=== PATIENT | female | born 1975 | race Hispanic/Latino ===

== ENCOUNTER 2018-08-10 18:55 | Emergency (ER) | payer BC ==
[~2018-08-10] VITALS: Ht 271.8 cm; Wt 60.8 kg
[~2018-08-10 18:55] MED LIST: AMARYL2 MG PO; Aspirin PO; LEVEMIR100 UNIT/1 SQ; LIPITOR20 MG PO; METFORMIN HCL500 MG PO; MULTI-VITAMIN1 EACH PO; PRINIVIL20 MG PO; TOPROL XL50 MG PO
[2018-08-10 21:46] LABS: CLARITY,URINE HAZY (CLEAR); COLOR,URINE YELLOW (YELLOW)
[2018-08-10 21:47] LABS: BILIRUBIN,URINE NEGATIVE (NEGATIVE); KETONES,URINE 1+ (NEGATIVE); LEUKOCYTE ESTERASE ,URINE NEGATIVE (NEGATIVE); NITRITE,URINE POSITIVE (NEGATIVE); PROTEIN,URINE DIPSTICK TRACE (NEGATIVE); URINE UROBILINOGEN 0.2 mg/dL (0.2 - 1)
[2018-08-10 21:50] LABS: BACTERIA,URINE MANY /HPF; EPITHELIAL CELLS,URINE MODERATE /LPF; RBC,URINE 0-5 /HPF (0-5); YEAST,URINE MANY
[2018-08-10 21:51] LABS: PREGNANCY TEST, URINE NEGATIVE (NEGATIVE)
[2018-08-10 23:22] VITALS: BP 196/93
== END 2018-08-10 23:35 | disposition home or self-care (01) ==
LOC: ER 18:55
DX: R10.2 Pelvic and perineal pain (principal); R30.0 Dysuria; N30.90 Cystitis, unspecified without hematuria; I10 Essential (primary) hypertension; E11.9 Type 2 diabetes mellitus without complications
CPT/HCPCS: 81001; 81025; 99283

== ENCOUNTER 2018-12-07 14:09 | Observation (INO) | payer BC ==
[~2018-12-07] VITALS: Ht 271.8 cm; Wt 60.8 kg
--- NOTE | 2018-12-07 15:06 | Diagnostic Imaging Report ---
EXAM: CHEST 2 VIEWS DATE: 12/07/2018 2:14 PM INDICATION:Dizziness, chest pain COMPARISON: Chest x-ray, 04/26/2015 (report only, images unavailable on PACS) FINDINGS: Lines and tubes: None Heart size normal. No focal pulmonary opacity, pleural effusion or pneumothorax. Upper abdomen unremarkable with cholecystectomy clips noted. No acute bony abnormality. IMPRESSION: No evidence for acute disease. Normal appearance of the chest. Signed by: Dr. Rahul Daugherty M.D. on 12/07/2018 3:02 PM
[2018-12-07 15:11] LABS: BASOPHILS # (AUTO) 0.1 (0.0-0.1); BASOPHILS % 0.6 % (0.0-1.0); EOSINOPHILS # (AUTO) 0.3 (0.0-0.4); EOSINOPHILS % 2.2 % (0.0-6.0); HEMATOCRIT 36.8 % (34.2-44.1); HEMOGLOBIN 11.2 g/dL (12.0-16.0); LYMPHOCYTES % 16.1 % (18.0-39.1); MEAN CORPUSCULAR HEMOGLOBIN 20.3 pg (28-32); MEAN CORPUSCULAR HGB CONC 30.4 g/dL (31-35); MEAN CORPUSCULAR VOLUME 66.7 fL (81-99); MONOCYTES # (AUTO) 0.9 (0.2-0.8); MONOCYTES % 7.5 % (4.4-11.3); NEUTROPHILS % 73.1 % (38.7-80.0); PLATELET COUNT 401 x10e3/uL (140-360); RED BLOOD COUNT 5.52 x10e6/uL (3.6-5.1); RED CELL DISTRIBUTION WIDTH 19.9 % (11.7-14.4)
[2018-12-07 15:17] LABS: BILIRUBIN,URINE NEGATIVE (NEGATIVE); CLARITY,URINE SL CLOUDY (CLEAR); COLOR,URINE STRAW (YELLOW); KETONES,URINE NEGATIVE (NEGATIVE); LEUKOCYTE ESTERASE ,URINE NEGATIVE (NEGATIVE); NITRITE,URINE NEGATIVE (NEGATIVE); PROTEIN,URINE DIPSTICK 2+ (NEGATIVE); URINE UROBILINOGEN 0.2 mg/dL (0.2 - 1)
[2018-12-07 15:24] LABS: INR 0.86; PROTHROMBIN TIME 12.2 seconds (11.9-14.5)
[2018-12-07 15:25] LABS: PARTIAL THROMBOPLASTIN TIME 27.9 seconds (23.8-35.5)
[2018-12-07 15:27] LABS: AMPHETAMINES SCREEN,URINE NEGATIVE (NEGATIVE); BACTERIA,URINE MANY /HPF; BENZODIAZEPINES SCREEN,URINE NEGATIVE (NEGATIVE); EPITHELIAL CELLS,URINE FEW /LPF; PHENCYCLIDINE SCREEN,URINE NEGATIVE (NEGATIVE); RBC,URINE 0-5 /HPF (0-5); TRANSITIONAL EPI CELLS,URINE MODERATE
[2018-12-07 15:34] LABS: ALANINE AMINOTRANSFERASE 19 IU/L (0-55); ALBUMIN 3.7 g/dL (3.5-5.0); ALBUMIN/GLOBULIN RATIO 0.9 (0.8-2.0); ALKALINE PHOSPHATASE 79 IU/L (40-150); BLOOD UREA NITROGEN 13 mg/dL (7-26); BUN/CREATININE RATIO 15 (6-25); CALCIUM 9.7 mg/dL (8.4-10.2); CARBON DIOXIDE 23 mmol/L (22-29); CHLORIDE 101 mmol/L (98-107); CREATINE KINASE 47 IU/L (29-168); CREATININE, SERUM 0.88 mg/dL (0.57-1.11); EST GLOMERULAR FILTRATION RATE > 60 ML/MIN (60-); GLUCOSE 341 mg/dL (74-118); SODIUM 133 mmol/L (136-145)
[2018-12-07] MEDS ORDERED: SODIUM CHLORIDE 0.9% 1000ML 1,000 ML IV STA (16:34)
--- NOTE | 2018-12-07 16:41 | Diagnostic Imaging Report ---
EXAMINATION: Head CT HISTORY: Dizziness, hypertension, COMPARISON: None. TECHNIQUE: Multidetector axial images were obtained with, without contrast from the foramen magnum to the vertex . The images were reconstructed using brain and bone algorithms. Thin section brain images were reformatted into coronal and sagittal planes. Image quality: Motion/streaking artifact limits the evaluation of the skull base and posterior cranial fossa. Dose modulation, iterative reconstruction, and/or weight based adjustment of the mA/kV was utilized to reduce the radiation dose to as low as reasonably achievable. FINDINGS: Parenchyma: 1. No abnormal densities. 2. No mass or hemorrhage. No CT evidence of acute territorial vascular insult. Extra-axial spaces:No abnormal density. No extra-axial fluid collections Brain volume: Normal for age. Ventricles: No hydrocephalus or displacement. Arteries: No density suggestive of thrombus. Dural sinuses: No abnormal density. Extra-axial spaces: No abnormal density. Foramen magnum: No mass, Chiari malformation, or basilar invagination. Sella: No obvious mass. Paranasal/mastoid sinuses: Imaged portions unremarkable. Skull/Scalp: No lytic or blastic lesions. No fractures. IMPRESSION: No intracranial abnormalities, particularly no hemorrhage. Signed by: Dr. Eboni Rudolph M.D. on 12/07/2018 4:38 PM
[2018-12-07] MEDS ORDERED: INSULIN LISPRO 100 UNIT/1 ML 3ML VIAL SQ ONE (16:45)
[2018-12-07] MEDS ORDERED: ONDANSETRON HCL INJ 2MG/ML 2ML 2 MG/ML VIAL IV PRN (17:15)
[2018-12-07] MEDS ORDERED: DEXTROSE 50% SYRINGE 50 ML IV PRN (17:15)
[2018-12-07] MEDS ORDERED: MORPHINE SULFATE 2 MG/ML SYR 1ML IV PRN (17:15)
--- NOTE | 2018-12-07 17:16 | NUR ---
REPORT TO DESIREE AND VERIFIED INSULIN WITH RACHEL MCDUFFIE
[2018-12-07] MEDS: METOPROLOL TARTRATE 25 MG TAB PO SCH (17:28)
[2018-12-07] MEDS: FAMOTIDINE 20 MG/2 ML VIAL IV SCH (17:28)
[2018-12-07] MEDS ORDERED: MORPHINE SULFATE INJ 4 MG/ML INJ 1ML IV PRN (17:30)
--- OUTSIDE RECORDS SUMMARY | 2018-12-07 17:48 | XMS REPORT ---
Author Author [facility] Address Unknown Phone Unavailable Care Team Providers Care [facility] Name Role Phone Sachin HAMPTON Unavailable Unavailable Problems This patient has no known problems. Allergies, Adverse Reactions, Alerts This patient has no known allergies or adverse reactions. Medications This patient has no known medications. Results Test Description Test Time Test Comments Text Results Atomic Results Result Comments CT BRAIN WO 2018-12-07 16:36:00 [place] [id number] Patient Name: JERO MCCARTHY MR #: [id number] : 1975 Age/Sex: 43/F Req #: [id number] Adm Physician: Ordered by: JOY HAMPTON MD Report #: [id number] Location: ER Room/Bed: Procedure: [id number] CT/CT BRAIN WO Exam Date: 12/07/18 Exam Time: 1440 REPORT STATUS: Signed EXAMINATION: Head CT HISTORY: Dizziness, hypertension, COMPARISON: None. TECHNIQUE: Multidetector axial images were obtained with, without contrast from the foramen magnum to the vertex . The images were reconstructed using brain and bone algorithms. Thin section brain images were reformatted into coronal and sagittal planes. Image quality: Motion/streaking artifact limits the evaluation of the skull base and posterior cranial fossa. Dose modulation, iterative reconstruction, and/or weight based adjustment of the mA/kV was utilized to reduce the radiation dose to as low as reasonably achievable. FINDINGS: Parenchyma: 1. No abnormal densities. 2. No mass or hemorrhage. No CT evidence of acute territorial vascular insult. Extra-axial spaces:No abnormal density. No extra-axial fluid collections Brain volume: Normal for age. Ventricles: No hydrocephalus or displacement. Arteries: No density suggestive of thrombus. Dural sinuses: No abnormal density. Extra-axial spaces: No abnormal density. Foramen magnum: No mass, Chiari malformation, or basilar invagination. Sella: No obvious mass. Paranasal/mastoid sinuses: Imaged portions unremarkable. Skull/Scalp: No lytic or blastic lesions. No fractures. IMPRESSION: No intracranial abnormalities, particularly no hemorrhage. Signed by: Dr. Amadeo Rudolph M.D. on 12/07/2018 4:38 PM Dictated By: AMADEO RUDOLPH MD 37 Transcribed By: HUSSAIN on 12/07/181637 COPY TO: JOY HAMPTON MD CHEST 2 VIEWS 2018-12-07 15:00:00 [place] [id number] Patient Name: JERO MCCARTHY MR #: [id number] : 1975 Age/Sex: 43/F Req #: [id number] Adm Physician: Ordered by: JOY HAMPTON MD Report #: [id number] Location: ER Room/Bed: Procedure: [id number] DX/CHEST 2 VIEWS Exam Date: 12/07/18 Exam Time: 1431 REPORT STATUS: Signed EXAM: CHEST 2 VIEWS DATE: 12/07/2018 2:14 PM INDICATION:Dizziness, chest pain COMPARISON: Chest x-ray, 04/26/2015 (report only, images unavailable on PACS) FINDINGS: Lines and tubes: None Heart size normal. No focal pulmonary opacity, pleural effusion or pneumothorax. Upper abdomen unremarkable with cholecystectomy clips noted. No acute bony abnormality. IMPRESSION: No evidence for acute disease. Normal appearance of the chest. Signed by: Dr. Sonia Gibson M.D. on 12/07/2018 3:02 PM Dictated By: SONIA GIBSON MD 1502 Transcribed By: HUSSAIN on 12/07/18 1502 COPY TO: JOY HAMPTON MD
--- NOTE | 2018-12-07 18:19 | NUR ---
RECVD PATIENT FROM ER, AAOx3, RESP EVEN AND UNLABORED, NOT IN ANY ACUTE DISTRESS, DENIES ANY PAIN, CALL LIGHT IN REACH
[2018-12-07 18:28] VITALS: BP 189/88
--- NOTE | 2018-12-07 18:29 | NUR ---
RECHECKED BP MANUALLY 155/85. PATIENT AMBULATING IN WELLER WAY, NOT IN ANY DISTRESS
--- NOTE | 2018-12-07 19:30 | NUR ---
Rounding done, received patient resting in bed. A&Ox4, respirations even & unlabored, no distress noted. Patient denies any issues at this time. Call light within reach, siderailsx2 raised and bed set to lowest position.
[2018-12-07 21:15] VITALS: BP 169/77
[2018-12-07] MEDS: INSULIN LISPRO 100 UNIT/1 ML 3ML VIAL SQ SCH (21:32)
[2018-12-08] VITALS (10 sets, daily range): BP systolic 123–169; BP diastolic 70–77
[2018-12-08 02:03] LABS: CREATINE KINASE 36 IU/L (29-168)
[2018-12-08] MEDS: FAMOTIDINE 20 MG/2 ML VIAL IV SCH (05:35)
[2018-12-08] MEDS: METOPROLOL TARTRATE 25 MG TAB PO SCH ×2 (05:35→17:15)
[2018-12-08 06:20] LABS: BASOPHILS # (AUTO) 0.1 (0.0-0.1); BASOPHILS % 0.6 % (0.0-1.0); EOSINOPHILS # (AUTO) 0.6 (0.0-0.4); EOSINOPHILS % 5.2 % (0.0-6.0); HEMATOCRIT 34.2 % (34.2-44.1); HEMOGLOBIN 10.2 g/dL (12.0-16.0); LYMPHOCYTES # (AUTO) 2.3 (1.0-3.2); LYMPHOCYTES % 21.5 % (18.0-39.1); MEAN CORPUSCULAR HGB CONC 29.8 g/dL (31-35); MEAN CORPUSCULAR VOLUME 67.1 fL (81-99); MONOCYTES # (AUTO) 0.7 (0.2-0.8); MONOCYTES % 6.9 % (4.4-11.3); NEUTROPHILS % 65.2 % (38.7-80.0); PLATELET COUNT 364 x10e3/uL (140-360); RED CELL DISTRIBUTION WIDTH 19.9 % (11.7-14.4)
[2018-12-08 06:40] LABS: ALANINE AMINOTRANSFERASE 17 IU/L (0-55); ALBUMIN 2.9 g/dL (3.5-5.0); ALBUMIN/GLOBULIN RATIO 0.8 (0.8-2.0); ALKALINE PHOSPHATASE 62 IU/L (40-150); BLOOD UREA NITROGEN 12 mg/dL (7-26); BUN/CREATININE RATIO 17 (6-25); CALCIUM 9.1 mg/dL (8.4-10.2); CARBON DIOXIDE 24 mmol/L (22-29); CHLORIDE 109 mmol/L (98-107); CHOL/HDL RATIO 3.3 (3.0-3.6); CHOLESTEROL 162 MD/DL (0-199); CREATININE, SERUM 0.69 mg/dL (0.57-1.11); EST GLOMERULAR FILTRATION RATE > 60 ML/MIN (60-); GLUCOSE 151 mg/dL (74-118); HDL CHOLESTEROL 49 MG/DL (40-60); LDL CHOLESTEROL 94 MG/DL (60-130); SODIUM 139 mmol/L (136-145); TRIGLYCERIDES 97 MG/DL (0-149)
--- NOTE | 2018-12-08 07:30 | NUR ---
pt up in bed no distress noted ,denies pain
[2018-12-08] MEDS: INSULIN LISPRO 100 UNIT/1 ML 3ML VIAL SQ SCH ×6 (08:00→21:00)
[2018-12-08] MEDS: ASPIRIN 81 MG ENTERIC COATED PO SCH (08:03)
[2018-12-08 10:00] LABS: CREATINE KINASE 39 IU/L (29-168)
[2018-12-08] MEDS ORDERED: ONDANSETRON HCL 4 MG ORAL DISINTEGRATING TAB PO PRN (11:00)
[2018-12-08] MEDS ORDERED: ACETAMINOPHEN 325 MG TAB PO PRN (14:30)
--- NOTE | 2018-12-08 14:52 | NUR ---
Nutrition Screen Note RD Recommendation for Physician: 1800 ADA Plan of Care: RD following, monitoring for adequacy and tolerance Nutrition reason for involvement: MD Consult for DM education Primary Diagnose(s):DM Ht:59 in Wt:lbs BMI:27.13 kg/m2 IBW:95lbs RD Assessment:(12/08/2018) Initial encounter with patient. Pt with a hx of diabetes (since 2014) and gestational diabetes that is non compliant with treatment because she could not afford the diabetes medications or supplies. Pt with a good Po intake. Pt walks and watches what she eats, but admits to making poor food choices when she is at work. Her also has diabetes. Pt states that she is 59" not 107" tall Current Diet: 1800 ADA Malnutrition Evaluation 12/08/2018 The patient does not meet criteria for a specified degree of malnutrition at this time. Will re-evaluate at follow-up as appropriate. Nutrition Education Learner(s): Pt Barriers:None Cultural/Language Modifications:None Readiness: Willing Method: Handouts, verbal Topics: Diabetes, carbohydrate counting Understanding/Compliance: Expect compliance Diet Adequacy: Meeting calorie needs, Meeting protein needs, Meeting fluid needs Tolerance: Tolerating PO Nutrition Care Level: Low Michael Berry RD, YESI, [facility] Addendum: 12/08/18 at 1458 by Michael Berry DIET 134lbs
--- NOTE | 2018-12-08 15:00 | NUR ---
PT UP AMBULATING IN WELLER DENIES PAIN
--- NOTE | 2018-12-08 15:18 | History and Physical ---
CHIEF COMPLAINT: Chest pain. Severe hyperglycemia. Increase in fatigue. Increase in urinary frequency. Urinary tract infection. HISTORY: This is a 43-year-old female, who was diagnosed with diabetes some time ago back in 2014. The patient did not take any medications since however. The patient was diagnosed with new-onset diabetes, uncontrolled back when she was seen by Dr. Mai. The patient, however, did not take any of her blood sugar medications since then. She has tried to control her sugar with diet control. The patient had a cardiac stress test at the time, which was positive and she went for cardiac cath which was subsequently negative for any obstructive coronary artery disease. The patient is stable. Again, that was in 2014. The patient came in now with recurrent chest pain. Her blood sugar was very elevated in the 300 to 400. Her glycohemoglobin A1c is 12.3. The patient's cardiac enzymes were negative x2 sets. The patient has remained stable at this time. PAST MEDICAL HISTORY: Diabetes type 2, hypertension. PAST SURGICAL HISTORY: Cholecystectomy and 2 C-sections. SOCIAL HISTORY: The patient does not smoke or use alcohol. 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 FAMILY HISTORY: Consistent with diabetes type 2 and hypertension. ALLERGIES: NONE. HOME MEDICATIONS: None. PHYSICAL EXAMINATION: VITAL SIGNS: Temperature is 97, blood pressure 123/73, pulse rate is 80, respirations 20. GENERAL: The patient is not in acute distress. She is awake. HEENT: Normocephalic, atraumatic. Anicteric. NECK: Supple grossly. PULMONARY: Clear. CARDIOVASCULAR: Regular rate and rhythm. ABDOMEN: Soft and unremarkable. EXTREMITIES: No cyanosis or edema. NEUROLOGIC: No gross focal deficit. LABORATORY DATA: Sodium is 139, potassium 4, chloride 109, bicarb 24, BUN 12, creatinine 0.7, glucose 151 after treatment. WBC 10.7, hemoglobin 10.2, hematocrit 34.2, and platelets are 364. Liver enzymes unremarkable. Glycohemoglobin A1c is 12.3. EKG showed normal sinus rhythm with possible septal ischemia. IMPRESSION: 1. Diabetes type 2, severely uncontrolled due to the patient's compliancy. 2. Chest pain with negative cardiac catheterization back in 2014. However, now chest pain, chest pressure. Will need further evaluation. PLAN: Diabetic control. Dietitian consultation. Consultation with Dr. Rizzo. We will continue with treatment at this time. Echocardiogram. The patient may or may not require stress test in the hospital, but will follow up with Cardiology for recommendation. Cardiac enzymes negative x2 sets. We will continue with current observation. MD ALEX Basilio/STEPHANIE /[id number]
--- NOTE | 2018-12-08 16:43 | Consultation ---
DATE OF CONSULTATION: 12/08/2018 Cardiology Consultation REASON FOR CONSULTATION: Chest pain. CHIEF COMPLAINT: Chest pain. HISTORY OF PRESENT ILLNESS: Ms. Kennedy is a 43-year-old female with past medical history of hypertension, essential; type 2 diabetes diagnosed 4 years ago, has been off all medications for at least 3 years as well as hypercholesteremia who presents to this institution after a 2-day history of episodic left-sided parasternal chest sharp pain, [id number] in nature, lasting minutes at a time. The patient reports at baseline, she is very active, however, has noted some limitation in her activity level with exertional breathlessness. She had a severe episode yesterday lasting 20 minutes associated with some slight left arm heaviness. She came to the emergency room for further care and evaluation. Upon arrival, she was noted to have mildly elevated white count at 12.4, and labs showed very high elevation in blood sugar in the 340s range with A1c coming up to 12.3%. Her enzymes are negative x2 with a troponin of less than 0.001, and EKG shows normal sinus rhythm and no ischemia. We had a long visit with the patient today with discussion of different management options and treatment strategies. PAST MEDICAL HISTORY: 1. Hypertension, essential. 2. Type 2 diabetes. 3. Hypercholesteremia. PAST SURGICAL HISTORY: 1. History of cholecystectomy. 2. History of surgery x2. FAMILY HISTORY: Mother alive at 71 years of age, has diabetes and hypertension. Father at the age of 54 from alcoholism, was a heavy smoker and had diabetes. Denies any family history of premature coronary artery disease. She has 5 kids, 2 of which in childhood, a son who at the age of 3 from leukemia and a daughter who at the age of 2 due to complications related to osteogenesis imperfecta. SOCIAL HISTORY: She is a quarter-pack per day smoker. She has smoked off and on for the past 15 years. Denies any alcohol or illicit drug use. ALLERGIES: NO KNOWN DRUG ALLERGIES. HOME MEDICATIONS: Currently, she is not taking any. REVIEW OF SYSTEMS: GENERAL: Denies any fevers, chills, or any weight changes. HEENT:: No headaches, visual complaints, sore throat, or stuffy nose. RESPIRATORY: Denies any pleuritic component to the chest pain. Has exertional dyspnea as noted above and shortness of breath with the chest pain episode. CARDIOVASCULAR: As per HPI. GI: Denies any abdominal pain. Had some slight nausea. No vomiting. No bright red blood per rectum, melena, or hematemesis. HEMATOLOGY: No easy bruising or bleeding. : Denies any dysuria, pyuria, or changes in urinary frequency. MUSCULOSKELETAL: Denies any leg pains, aches, or back issues. ENDOCRINE: Positive for diabetes. NEUROLOGIC: Denies any focal weakness, numbness, tingling, seizures, headache, TIA, or stroke. Remainder of review of systems negative, otherwise as mentioned. PHYSICAL EXAMINATION: VITAL SIGNS: Height of 57 inches, weight of 134 pounds. Temperature 96.6, pulse of 80, respiratory rate 18, blood pressure 123/73, O2 saturation 99% on room air. GENERAL: This is a well-nourished, well-developed lady who is currently in no apparent distress. HEENT: Normocephalic, atraumatic. Pupils equal, round, reactive to light. Extraocular movements are intact. Oropharynx is clear. NECK: No elevation of jugular venous pulsation. No carotid bruits. CARDIOVASCULAR: Regular rate and rhythm. Normal S1, S2. Soft 1/6 systolic murmur at the left lower sternal border. LUNGS: Clear to auscultation bilaterally. ABDOMEN: Soft, nontender, nondistended. Normoactive bowel sounds. No hepatosplenomegaly. BACK: No costovertebral angle tenderness. EXTREMITIES: Warm with 2+ bilateral radial pulses, 1+ femoral pulses, and 1+ pedal pulses. NEUROLOGIC: Cranial nerves II through XII are intact. Strength is 5/5. Grossly nonfocal. PSYCHIATRIC: Normal fluent speech. Appropriate affect. No anxiety or delusions. LABORATORY DATA: White count currently is 10.7, hemoglobin of 10.2, hematocrit 34.2, platelets of 364, MCV is 67. Sodium 139, potassium 4.0, chloride 109, bicarb 24, BUN 12, creatinine 0.69, glucose is currently 151, calcium 9.1, AST 17, ALT 17, alkaline phosphatase 62, total protein of 6.4, albumin of 2.9. Troponin went from 0.001 to less than 0.001. Hemoglobin A1c was 12.3%. Lipid profile shows total cholesterol of 162, HDL 49, LDL of 94. INR 0.86. UDS is negative. UA shows no white cells, 2+ protein, and 3+ glucose. Brain CT shows no acute intracranial abnormalities. Chest x-ray is negative. EKG reveals normal sinus rhythm, normal axis, and no ST-T wave changes. DIAGNOSES: 1. Chest pain with mixed typical and atypical features, thus far has 2 negative cardiac enzymes and EKG showing no ischemia. 2. Hypertension, essential. 3. Type 2 diabetes, that is uncontrolled with A1c greater than 12%. 4. Hypercholesteremia. 5. Smoker. 6. Microcytic anemia, suspecting iron deficiency. PLAN/RECOMMENDATIONS: 1. Overall, we will cycle one more sets of cardiac biomarkers. 2. We will follow up on echocardiogram ordered by primary team. 3. We will recommend ischemic risk stratification with a stress test. This can be done as an outpatient if her last enzyme is negative today. Card is given to her and advised for followup within the next 2-3 days. 4. Appreciate primary team who has re-initiated her on her diabetic therapy. 5. We will continue 81 aspirin for now, beta-rolan therapy. 6. We will go ahead and add low-dose statin therapy. Thank you for this referral. MD JOJO Medina/STEPHANIE /[id number]
--- NOTE | 2018-12-08 17:21 | NUR ---
PT UP IN BED NO DSITRESS NTOED,DENIES PAIN
--- NOTE | 2018-12-08 19:30 | NUR ---
Received patient resting in bed. A&Ox4, respirations even & unlabored, no distress noted. Patient denies any needs at this time. Call light within reach, side railsx2 raised & bed set to lowest position.
[2018-12-08] MEDS ORDERED: INSULIN GLARGINE 100 UNITS/ML VIAL SQ SCH (21:00)
[2018-12-08] MEDS ORDERED: PRAVASTATIN 20 MG TAB PO SCH (21:00)
[2018-12-09] VITALS: BP 159/77
[2018-12-09 01:44] VITALS: BP 159/77
[2018-12-09 04:00] VITALS: BP 123/60
[2018-12-09] MEDS: METOPROLOL TARTRATE 25 MG TAB PO SCH (05:56)
--- NOTE | 2018-12-09 05:58 | NUR ---
Patient c/o mild swelling to left hand. Denies any pain, numbness or tingling, +capillary refills & pulses, will continue to monitor.
--- NOTE | 2018-12-09 07:25 | NUR ---
pt up in bed denies maggy no distress noted,
[2018-12-09 07:52] VITALS: BP 137/76
[2018-12-09] MEDS: INSULIN LISPRO 100 UNIT/1 ML 3ML VIAL SQ SCH ×2 (08:07→08:08)
[2018-12-09 08:08] VITALS: BP 137/76
[2018-12-09] MEDS: ASPIRIN 81 MG ENTERIC COATED PO SCH (08:08)
[2018-12-09] MEDS ORDERED: tresiba SQ (10:44)
[2018-12-09] MEDS ORDERED: NOVOLOG100 UNIT/1 SQ (10:45)
[2018-12-09] MEDS ORDERED: LOPRESSOR25 MG PO (10:45)
[2018-12-09] MEDS ORDERED: PRAVASTATIN SOD20 MG PO (10:46)
--- NOTE | 2018-12-09 11:07 | NUR ---
pt discharged home,iv dcd without redness or swelling,prescriptions and instructions given copy on chart,transpoted to auto via w/c
--- NOTE | 2018-12-09 21:08 | Discharge Summary ---
CONSULTANTS: Tarik Rizzo MD. FINAL DIAGNOSES: 1. Uncontrolled diabetes type 2 with glycohemoglobin A1c of 12.3. 2. Polydipsia and polyuria. 3. Atypical chest pain. SUMMARY: [age] years female with some chest discomfort, not so much of pain. The patient also noticed that she is more thirsty with increasing urination, signs and symptoms consistent with worsening diabetes. The patient was diagnosed with diabetes sometimes ago, but she is not taking any medication, had not been taking care of herself, came in with glycohemoglobin A1c of 12.3. The patient is dehydrated due to the polyuria. The patient initiated on insulin therapy and she is doing well. Sugar went down to 150 with blood work. The patient is stable now. The patient was discharged home with the following instructions. For medication, she will take Tresiba 20 units at night and NovoLog 6 units before meals, Lopressor 20 mg b.i.d., and pravastatin 20 mg at night. The patient to follow up with Dr. Tarik Rizzo for outpatient stress test. Discussed with the patient at length. She has expressed understanding and will follow up either with her family physician or assigned by her insurance coverage or myself within a week. MD ALEX Basilio/STEPHANIE /[id number]
== END 2018-12-09 11:07 | disposition home or self-care (01) ==
LOC: ER 14:09 → ERHOLD 17:46 → MED/SURG3 18:17
PROVIDERS: ADMIT Internal Medicine; ATTEND Internal Medicine
DX: R07.89 Other chest pain (principal); E11.65 Type 2 diabetes mellitus with hyperglycemia; R63.1 Polydipsia; R35.8 Other polyuria; I10 Essential (primary) hypertension; E78.00 Pure hypercholesterolemia, unspecified; Z90.49 Acquired absence of other specified parts of digestive tract; Z91.19 Patient's noncompliance with other medical treatment and regimen; F17.210 Nicotine dependence, cigarettes, uncomplicated; D50.9 Iron deficiency anemia, unspecified
CPT/HCPCS: 36415 ×3; 70450; 71046; 80053 ×2; 80061; 80307; 81001; 82550 ×2; 82553 ×2; 82948 ×2; 83036; 84484 ×2; 85025 ×2; 85610; 85730; 93005; 93306; 96372; 99284; G0378 ×3; J1815; J7030

== ENCOUNTER 2021-05-16 15:27 | Inpatient (IN) | payer SELFPAY ==
[~2021-05-16] VITALS: Ht 149.9 cm; Wt 57.7 kg
[~2021-05-16 15:27] MED LIST changes: +LOPRESSOR25 MG PO; +NOVOLOG100 UNIT/1 SQ; +PRAVASTATIN SOD20 MG PO; +tresiba SQ
[2021-05-16 16:10] LABS: BASOPHILS # (AUTO) 0.1 (0.0-0.1); BASOPHILS % 0.6 % (0.0-1.0); EOSINOPHILS # (AUTO) 0.3 (0.0-0.4); EOSINOPHILS % 3.3 % (0.0-6.0); HEMATOCRIT 32.3 % (34.2-44.1); HEMOGLOBIN 9.4 g/dL (12.0-16.0); LYMPHOCYTES # (AUTO) 2.7 (1.0-3.2); MEAN CORPUSCULAR HEMOGLOBIN 19.8 pg (28-32); MEAN CORPUSCULAR HGB CONC 29.1 g/dL (31-35); MEAN CORPUSCULAR VOLUME 68.1 fL (81-99); MONOCYTES % 9.2 % (4.4-11.3); NEUTROPHILS # (AUTO) 6.2 (2.1-6.9); NEUTROPHILS % 60.4 % (38.7-80.0); PLATELET COUNT 449 x10e3/uL (140-360); RED BLOOD COUNT 4.74 x10e6/uL (3.6-5.1); RED CELL DISTRIBUTION WIDTH 20.8 % (11.7-14.4)
[2021-05-16 16:27] LABS: INR 0.83; PROTHROMBIN TIME 11.8 seconds (11.9-14.5)
[2021-05-16 16:28] LABS: PARTIAL THROMBOPLASTIN TIME 28.3 seconds (23.8-35.5)
[2021-05-16 16:32] LABS: CLARITY,URINE CLEAR (CLEAR); COLOR,URINE YELLOW (YELLOW); KETONES,URINE NEGATIVE (NEGATIVE); LEUKOCYTE ESTERASE ,URINE NEGATIVE (NEGATIVE); NITRITE,URINE NEGATIVE (NEGATIVE); PROTEIN,URINE DIPSTICK NEGATIVE (NEGATIVE); URINE UROBILINOGEN 0.2 mg/dL (0.2 - 1)
[2021-05-16 16:34] LABS: ALBUMIN 3.7 g/dL (3.5-5.0); ALBUMIN/GLOBULIN RATIO 0.9 (0.8-2.0); ANION GAP 14.5 mmol/L (8-16); CALCIUM 9.3 mg/dL (8.4-10.2); CREATININE, SERUM 0.77 mg/dL (0.57-1.11); MAGNESIUM 1.6 MG/DL (1.3-2.1); POTASSIUM 3.5 mmol/L (3.5-5.1)
[2021-05-16 16:40] LABS: CREATINE KINASE MB 1.3 ng/mL (0-5.0)
[2021-05-16 16:53] LABS: BACTERIA,URINE RARE /HPF; RBC,URINE 0-5 /HPF (0-5)
[2021-05-16 16:54] LABS: EPITHELIAL CELLS,URINE MODERATE /LPF; WBC,URINE (MAN) 0-5 /HPF (0-5)
[2021-05-16 17:53] LABS: MICROCYTOSIS MARKED
[2021-05-16 17:54] LABS: HYPOCHROMASIA MARKED; PLATELET ESTIMATE ADEQUATE; PLATELET MORPHOLOGY COMMENT NORMAL
[2021-05-16] MEDS ORDERED: ASPIRIN 81 MG CHEW TAB PO ONE (18:00)
[2021-05-16] MEDS ORDERED: ONDANSETRON HCL INJ 2MG/ML 2ML 2 MG/ML VIAL IV PRN (18:00)
[2021-05-16] MEDS ORDERED: DEXTROSE 50% SYRINGE 50 ML IV PRN (18:45)
[2021-05-16] MEDS ORDERED: METOPROLOL TARTRATE INJ 1 MG/ML VIAL IV PRN (19:00)
[2021-05-16] MEDS: INSULIN LISPRO 100 UNIT/1 ML 3ML VIAL SQ SCH (20:44)
[2021-05-16 22:35] LABS: CREATINE KINASE MB 1.1 ng/mL (0-5.0)
[2021-05-17] MEDS ORDERED: DEXTROSE 50% SYRINGE 50 ML IV PRN ×2 (00:15)
[2021-05-17] MEDS ORDERED: BENZONATATE 100 MG CAP PO PRN (00:15)
[2021-05-17] MEDS ORDERED: ONDANSETRON HCL INJ 2MG/ML 2ML 2 MG/ML VIAL IV PRN (00:15)
[2021-05-17] MEDS ORDERED: POTASSIUM CHLORIDE 20 MEQ TAB CR PO PRN (00:15)
[2021-05-17] MEDS ORDERED: ACETAMINOPHEN 325 MG TAB PO PRN (00:15)
[2021-05-17] MEDS ORDERED: MELATONIN 5 MG TABLET PO PRN (00:15)
[2021-05-17] MEDS ORDERED: LIDOCAINE 4% PATCH TP PRN (00:15)
[2021-05-17] MEDS ORDERED: DIPHENHYDRAMINE HCL 25 MG CAP PO PRN (00:15)
[2021-05-17] MEDS ORDERED: SIMETHICONE 80 MG CHEW PO PRN (00:15)
[2021-05-17] MEDS ORDERED: TRAMADOL HCL 50 MG TAB PO PRN (00:15)
[2021-05-17] MEDS ORDERED: DOCUSATE SODIUM 100 MG CAP PO PRN (00:15)
[2021-05-17] MEDS: LOSARTAN POTASSIUM 100 MG TAB PO SCH ×2 (00:55→09:36)
[2021-05-17 06:00] LABS: BASOPHILS # (AUTO) 0.1 (0.0-0.1); BASOPHILS % 0.6 % (0.0-1.0); EOSINOPHILS # (AUTO) 0.4 (0.0-0.4); EOSINOPHILS % 3.2 % (0.0-6.0); HEMATOCRIT 32.6 % (34.2-44.1); HEMOGLOBIN 9.7 g/dL (12.0-16.0); LYMPHOCYTES # (AUTO) 2.6 (1.0-3.2); LYMPHOCYTES % 24.2 % (18.0-39.1); MEAN CORPUSCULAR HEMOGLOBIN 20.1 pg (28-32); MEAN CORPUSCULAR HGB CONC 29.8 g/dL (31-35); MEAN CORPUSCULAR VOLUME 67.5 fL (81-99); MONOCYTES # (AUTO) 0.8 (0.2-0.8); MONOCYTES % 7.3 % (4.4-11.3); NEUTROPHILS % 64.2 % (38.7-80.0); PLATELET COUNT 372 x10e3/uL (140-360); RED BLOOD COUNT 4.83 x10e6/uL (3.6-5.1); RED CELL DISTRIBUTION WIDTH 20.8 % (11.7-14.4)
[2021-05-17 06:16] LABS: CREATINE KINASE 41 IU/L (29-168)
[2021-05-17 06:23] LABS: ALBUMIN 3.3 g/dL (3.5-5.0); ANION GAP 16.8 mmol/L (8-16); CALCIUM 8.6 mg/dL (8.4-10.2); CHOL/HDL RATIO 3.7 (3.0-3.6); CREATININE, SERUM 0.66 mg/dL (0.57-1.11); POTASSIUM 3.8 mmol/L (3.5-5.1)
[2021-05-17] MEDS: INSULIN LISPRO 100 UNIT/1 ML 3ML VIAL SQ SCH ×4 (07:23→20:36)
[2021-05-17] MEDS: PANTOPRAZOLE SOD 40 MG TABEC PO SCH (07:47)
[2021-05-17 08:28] LABS: BAND NEUTROPHILS % (MANUAL) 1 %; LYMPHOCYTES % (MANUAL) 17 % (19-48); MONOCYTES % (MANUAL) 7 % (3.4-9.0); NEUTROPHILS % (MANUAL) 75 % (40-74); PLATELET ESTIMATE ADEQUATE; PLATELET MORPHOLOGY COMMENT NORMAL; RBC MORPHOLOGY COMMENT NORMAL
[2021-05-17] MEDS: ASPIRIN 81 MG ENTERIC COATED PO SCH (09:36)
[2021-05-17 11:00] VITALS: BP 144/79
[2021-05-17 16:19] VITALS: BP 124/60
[2021-05-17 20:00] VITALS: BP 136/80
[2021-05-17] MEDS: ATORVASTATIN 40 MG TAB PO SCH (20:35)
[2021-05-17 23:52] VITALS: BP 139/74
[2021-05-18 04:30] VITALS: BP 125/86
[2021-05-18 05:29] LABS: BASOPHILS # (AUTO) 0.1 (0.0-0.1); BASOPHILS % 0.5 % (0.0-1.0); EOSINOPHILS # (AUTO) 0.4 (0.0-0.4); EOSINOPHILS % 3.4 % (0.0-6.0); HEMATOCRIT 33.3 % (34.2-44.1); HEMOGLOBIN 9.6 g/dL (12.0-16.0); LYMPHOCYTES # (AUTO) 2.7 (1.0-3.2); MEAN CORPUSCULAR HEMOGLOBIN 19.9 pg (28-32); MEAN CORPUSCULAR HGB CONC 28.8 g/dL (31-35); MEAN CORPUSCULAR VOLUME 68.9 fL (81-99); MONOCYTES # (AUTO) 0.8 (0.2-0.8); MONOCYTES % 6.6 % (4.4-11.3); NEUTROPHILS # (AUTO) 8.7 (2.1-6.9); NEUTROPHILS % 67.9 % (38.7-80.0); PLATELET COUNT 465 x10e3/uL (140-360); RED BLOOD COUNT 4.83 x10e6/uL (3.6-5.1)
[2021-05-18 05:41] LABS: ANION GAP 14.5 mmol/L (8-16); CREATININE, SERUM 0.76 mg/dL (0.57-1.11); POTASSIUM 3.5 mmol/L (3.5-5.1)
[2021-05-18 05:42] LABS: CALCIUM 8.6 mg/dL (8.4-10.2)
[2021-05-18 08:00] VITALS: BP 125/73
[2021-05-18] MEDS: PANTOPRAZOLE SOD 40 MG TABEC PO SCH (08:16)
[2021-05-18] MEDS: INSULIN LISPRO 100 UNIT/1 ML 3ML VIAL SQ SCH ×4 (08:17→21:31)
[2021-05-18] MEDS: ASPIRIN 81 MG ENTERIC COATED PO SCH (08:17)
[2021-05-18] MEDS: LOSARTAN POTASSIUM 100 MG TAB PO SCH (08:18)
[2021-05-18 10:36] LABS: ANISOCYTOSIS MODERATE; ELLIPTOCYTE, RBC SLIGHT; HYPOCHROMASIA MARKED; MICROCYTOSIS MARKED; OVALOCYTES FEW; PLATELET ESTIMATE ADEQUATE; PLATELET MORPHOLOGY COMMENT FEW LARGE; RBC MORPHOLOGY COMMENT ABNORMAL
[2021-05-18 11:48] VITALS: BP 141/79
[2021-05-18 16:00] VITALS: BP 155/71
[2021-05-18] MEDS ORDERED: IOPAMIDOL 370 MG/ML 200 ML INFUS..BTL INJ ONE (16:02)
[2021-05-18] MEDS ORDERED: SODIUM CHLORIDE 0.9% 100 ML ONE (16:02)
[2021-05-18 20:01] VITALS: BP 147/79
[2021-05-18] MEDS: ATORVASTATIN 40 MG TAB PO SCH (21:31)
[2021-05-19 00:30] VITALS: BP 127/80
[2021-05-19 05:00] VITALS: BP 128/75
[2021-05-19] MEDS: PANTOPRAZOLE SOD 40 MG TABEC PO SCH (07:30)
[2021-05-19] MEDS: ASPIRIN 81 MG ENTERIC COATED PO SCH (09:36)
[2021-05-19] MEDS: LOSARTAN POTASSIUM 100 MG TAB PO SCH (09:37)
[2021-05-19] MEDS: INSULIN LISPRO 100 UNIT/1 ML 3ML VIAL SQ SCH ×2 (10:21→11:30)
== END 2021-05-19 12:30 | disposition home or self-care (01) | DRG 69 ==
LOC: ER 15:44 → ERHOLD 17:50 → IMCU 05-17 10:24
PROVIDERS: ADMIT Internal Medicine; ATTEND Internal Medicine
DX: G45.9 Transient cerebral ischemic attack, unspecified (principal); I10 Essential (primary) hypertension; E11.9 Type 2 diabetes mellitus without complications; E78.5 Hyperlipidemia, unspecified; Z83.3 Family history of diabetes mellitus; Z82.49 Family history of ischemic heart disease and other diseases of the circulatory system; F17.210 Nicotine dependence, cigarettes, uncomplicated; D50.9 Iron deficiency anemia, unspecified; Z20.822 Contact with and (suspected) exposure to COVID-19
CPT/HCPCS: 36415; 70450; 70496; 70498; 70551; 71045; 72141; 80048; 80053; 80061; 81001; 82550; 82553; 82948; 83036; 83735; 84443; 84484; 85025; 85610; 85730; 87086; 93005; 93306; 93880; 96372; 99285; J7050; Q9967; U0002